=== PATIENT | male | born 1950 | race Caucasian/White ===

== ENCOUNTER → 2020-02-02 15:18 | Outpatient (BNVA) | payer MEDICARE, BC, SELFPAY | PROVIDERS: Referring Provider Family Medicine; Visit Provider Podiatrist Foot & Ankle Surgery | DX: M79.671 Pain in right foot (principal) | CPT/HCPCS: 73620; 73630 ==

== ENCOUNTER 2020-10-23 16:09 | Outpatient (CLI) | payer MEDICARE, BC, SELFPAY | END 2020-10-23 16:10 | disposition home or self-care (01) | LOC: SPT 16:10 | PROVIDERS: Visit Provider Podiatrist Foot & Ankle Surgery | DX: Z46.89 Encounter for fitting and adjustment of other specified devices (principal); M72.2 Plantar fascial fibromatosis; M79.671 Pain in right foot | CPT/HCPCS: 97760; L4397 ==

== ENCOUNTER → 2022-07-09 07:50 | Outpatient (BNVA) | payer OTHER, MEDICARE, BC, SELFPAY | PROVIDERS: Visit Provider Podiatrist Foot & Ankle Surgery | DX: M72.2 Plantar fascial fibromatosis (principal) | CPT/HCPCS: 73630 ==

== ENCOUNTER → 2022-08-19 13:05 | Outpatient (BNVA) | payer MEDICARE, SELFPAY | PROVIDERS: Visit Provider Podiatrist Foot & Ankle Surgery | DX: M72.2 Plantar fascial fibromatosis (principal) | CPT/HCPCS: 20550; J1100; J3301; J3490 ==

== ENCOUNTER → 2022-11-18 12:44 | Outpatient (BNVA) | payer MEDICARE, SELFPAY | PROVIDERS: Visit Provider Podiatrist Foot & Ankle Surgery | DX: M72.2 Plantar fascial fibromatosis (principal) | CPT/HCPCS: 99213 ==

== ENCOUNTER 2024-02-07 04:32 | Emergency (ER) | payer MEDICARE, SELFPAY ==
[2024-02-07 04:41] VITALS: BP 195/77; PULSE 94; RESP 18; TEMP 36.8; O2SAT 96; BMI 26.6
--- NOTE | 2024-02-07 04:48 | W.ED.DENTAL ---
HPI - Dental/Oral General: Chief complaint: Dental/Oral Stated complaint: Absessed Tooth Time Seen by Provider: 02/07/24 04:40 Source: patient Mode of arrival: ambulatory Limitations: no limitations History of Present Illness: 73-year-old male examined right lower dental pain and swelling over the last 5 days. He states he tried to get into the dentist on Thursday but was unable to. States his pain is currently a 6 out of 10 denies any fever denies any vomiting Associated symptoms: Denies fever(s) Related Data Home Medications Medication Instructions Recorded Confirmed amlodipine 10 mg tablet 10 mg PO DAILY 01/16/20 11/18/22 aspirin 81 mg tablet,delayed 81 mg PO DAILY 01/16/20 11/18/22 release lisinopril 20 mg tablet 20 mg PO BID 01/16/20 11/18/22 simvastatin 20 mg tablet 20 mg PO DAILY 01/16/20 11/18/22 Previous Rx's Medication Instructions Recorded Night splint #1 ea 10/23/20 cephalexin 500 mg capsule 500 mg PO TID 7 days #21 caps 02/07/24 Allergies Allergy/AdvReac Type Severity Reaction Status Date / Time No Known Allergies Allergy Verified 11/18/22 12:46 Review of Systems Const: Denies: fever(s), chills, body aches or change in appetite ENMT: Reports: dental pain; Denies: throat pain Card: Denies: chest pain Resp: Denies: dyspnea GI: Denies: abdominal pain, nausea, vomiting or diarrhea Musc: Denies: neck pain or back pain Skin/Breast: Denies: rash Neuro: Denies: headache(s) PFSH ED PFSH: Medical History Hypertension Hyperlipidemia Social History Alcohol intake: never Substance/Drug Use: never Current occupational status: retired Physical Exam Const: COMMON NORMALS: no acute distress, patient oriented x3 and healthy appearing HENMT: COMMON NORMALS: normocephalic and atraumatic HEAD & SCALP: normocephalic and atraumatic OTHER: Tenderness right lower molar with a dental abscess no trismus Eye: COMMON NORMALS: conjunctivae normal CONJUNCTIVA: Yes conjunctivae normal Neck/C-Spine: COMMON NORMALS: full ROM and supple Chest: COMMONS NORMALS: normal inspection of the chest Resp: COMMON NORMALS: normal respiratory effort Cardio: COMMON NORMALS: regular rate RATE: regular rate Extremity: COMMON NORMALS: normal to inspection and full ROM Neuro: COMMON NORMALS: patient oriented x3, moves all extremities and no focal motor deficits Psych: COMMON NORMALS: mental status grossly normal, Normal thought process present and cooperative THOUGHT PROCESS: Normal thought process present Skin: COMMON NORMALS: no rashes or lesions noted and no wounds GENERAL SKIN EXAM: no rashes or lesions noted Procedures Abscess I/D Site: other (dental) Side (if applicable): right Technique: incised with #11 blade Nerve Block Nerve Block 1: Time out performed: Yes Local Anesthetic: bupivacaine 0.5% Amount of anesthesia used (mL): 8 Side: right Intraoral Nerve Block: inferior alveolar Procedure Successful: Yes Patient Tolerated Procedure: well Complications: none Course Vital Signs: Vital signs: Vital Signs Temperature 98.3 F 02/07/24 04:41 Pulse Rate 94 02/07/24 04:41 Respiratory Rate 18 02/07/24 04:41 Blood Pressure 195/77 02/07/24 04:41 Pulse Oximetry 96 02/07/24 04:41 Oxygen Delivery Me thod Room Air 02/07/24 04:41 MDM - Dental/Oral Medical Decision Making Patient presents with a dental abscess did incise and drain the abscess we will place him on Keflex he is to follow-up with a dentist and is return if worsening. Medical Records I reviewed the patient's medical records. No radiology studies performed this visit Discharge Plan Discharge Patient Disposition: Home Clinical Impression: Dental abscess Condition: Stable Prescriptions: New cephalexin 500 mg capsule 500 mg PO TID 7 Days Qty: 21 0RF No Action simvastatin 20 mg tablet 20 mg PO DAILY aspirin 81 mg tablet,delayed release (DR/EC) 81 mg PO DAILY amlodipine 10 mg tablet 10 mg PO DAILY lisinopril 20 mg tablet 20 mg PO BID (DME) Night splint See Rx Instructions .Route .MEDSUPPLY Qty: 1 0RF Rx Instructions: As directed Discharge Orders: Discharge ED (Routine); Ordered 02/07/24 Ordered By: Linda Rondon Discharge Diet: Advance as tolerated Discharge Activity: Resume usual activity Patient Instructions: Dental Abscess (ED) Coding Level of Care Code ED Duplicator Punch Operator for Chg Fwd
[2024-02-07 05:09] VITALS: BP 136/78; PULSE 68; O2SAT 99
== END 2024-02-07 05:10 | disposition home or self-care (01) ==
PROVIDERS: Emergency Provider Emergency Medicine
DX: K08.89 Other specified disorders of teeth and supporting structures (principal); Z79.82 Long term (current) use of aspirin; I10 Essential (primary) hypertension; E78.5 Hyperlipidemia, unspecified
CPT/HCPCS: 40800; 99283